=== PATIENT | male | born 1940 | race Caucasian/White ===

== ENCOUNTER 2021-11-23 12:56 | Emergency (ER) | payer MEDICARE, OTHER ==
[2021-11-23 15:33] LABS: BASOPHIL 0.5 % (0-2); EOSINOPHIL 0.6 % (0-7); HCT 41.2 % (42.0-52.0); HGB 13.3 g/dl (13.2-18.0); LYMPHOCYTE 12.9 % (15-48); MCH 28.7 pg (25.0-31.0); MCHC 32.3 g/dL (32.0-36.0); MONOCYTE 10.5 % (0-12); MPV 10.8 fL (6.0-9.5); NRBC 0; PLT 197 K/uL (150-400); RBC 4.63 M/uL (4.70-6.00); RDW 14.2 % (11.5-14.0); WBC 12.6 K/uL (4.0-10.5)
[2021-11-23 15:52] LABS: BILIRUBIN NEGATIVE (NEGATIVE); BLOOD NEGATIVE Ery/uL (NEGATIVE); CLARITY CLEAR (CLEAR); COLOR YELLOW (YELLOW); GLUCOSE (U) NORMAL (NORMAL); LEUKOCYTES NEGATIVE Leu/uL (NEGATIVE); NITRITE NEGATIVE (NEGATIVE); PROTEIN NEGATIVE (NEGATIVE); UROBILINOGEN 0.2 mg/dL (0.2-1.0)
[2021-11-23 15:56] LABS: INR 1.08 (0.9-1.2); PROTHROMBIN TIME 13.7 SECONDS (11.9-13.9); PTT 27.5 SECONDS (24.9-34.6)
[2021-11-23 16:03] LABS: ALBUMIN 3.8 g/dL (3.4-5.0); CREATININE 0.88 mg/dL (0.67-1.17); GLOBULIN (CALCULATION) 3.9 g/dL; POTASSIUM 3.6 mmol/L (3.5-5.1); TOTAL PROTEIN 7.7 g/dL (6.4-8.2)
== END 2021-11-23 17:44 | disposition home or self-care (01) ==
LOC: FER 12:56
PROVIDERS: Emergency Medicine
DX: J44.9 Chronic obstructive pulmonary disease, unspecified (principal); I10 Essential (primary) hypertension; E11.9 Type 2 diabetes mellitus without complications; Z79.84 Long term (current) use of oral hypoglycemic drugs; Z79.899 Other long term (current) drug therapy
CPT/HCPCS: 36415; 71045; 80053; 81003; 82553; 83880; 84443; 84484; 85025; 85610; 85730; 93005